=== PATIENT | female | born 1960 | race Caucasian/White ===

== ENCOUNTER 2018-02-15 12:00 | Observation (INO) | payer MEDICARE, OTHER ==
[2018-02-15 12:45] LABS: ADD MAN DIFF? NO
[2018-02-15 12:46] LABS: WHITE BLOOD COUNT 7.4 10^3/ul (4.8-10.8)
[2018-02-15 12:46] LABS: BASOPHIL # 0.1 10^3/ul (0.0-0.1); BASOPHILS % 0.8 % (0.0-2.0); EOSINOPHILS % 0.5 % (0.0-7.0); HEMATOCRIT 40.4 % (37.0-47.0); HEMOGLOBIN 14.2 g/dl (12.0-16.0); LYMPHOCYTES # 1.4 10^3/ul (0.8-2.9); LYMPHOCYTES % 19.4 % (15.0-51.0); MEAN CORPUSCULAR HEMOGLOBIN 31.8 pg (29.0-33.0); MEAN CORPUSCULAR HGB CONC 35.1 g/dl (32.0-37.0); MEAN CORPUSCULAR VOLUME 90.4 fl (82.0-101.0); MEAN PLATELET VOLUME 9.3 fl (7.4-10.4); MONOCYTE # 0.7 10^3/ul (0.3-0.9); MONOCYTES % 8.7 % (0.0-11.0); NEUTROPHIL # 5.2 10^3/ul (1.6-7.5); NEUTROPHILS % 70.3 % (39.0-77.0); PLATELET COUNT 468 10^3/UL (140-415); RED BLOOD COUNT 4.47 10^6/ul (4.20-5.40)
[2018-02-15] MEDS: SOD CHLORIDE 0.9% 1,000 ML IV (12:54)
[2018-02-15] MEDS: LORAZEPAM 2 MG INJ IV (12:54)
[2018-02-15 13:06] LABS: ALANINE AMINOTRANSFERASE 22 IU/L (13-69); ALBUMIN 4.3 g/dl (3.3-4.9); ALBUMIN/GLOBULIN RATIO 1.48; ALKALINE PHOSPHATASE 81 IU/L (42-121); ANION GAP 13 (8-16); ASPARTATE AMINO TRANSFERASE 26 IU/L (15-46); BILIRUBIN,INDIRECT 0.5 mg/dl (0-1.1); BILIRUBIN,TOTAL 0.5 mg/dl (0.2-1.3); BLOOD UREA NITROGEN 9 mg/dl (7-20); CALCIUM 9.8 mg/dl (8.4-10.2); CARBON DIOXIDE 28 mmol/L (21-31); CHLORIDE 97 mmol/L (97-110); CREATININE 0.49 mg/dl (0.44-1.00); GLUCOSE 100 mg/dl (70-220); LIPASE 46 U/L (23-300); POTASSIUM 3.4 mmol/L (3.5-5.1); SODIUM 135 mmol/L (135-144); TOTAL PROTEIN 7.2 g/dl (6.1-8.1)
[2018-02-15 13:19] LABS: TROPONIN-I < 0.010 ng/ml (0.000-0.120)
[2018-02-15 15:50] LABS: ADD UMIC YES; UR ASCORBIC ACID NEGATIVE (NEGATIVE); UR BACTERIA FEW /HPF (NONE SEEN); UR BILIRUBIN (Dip) NEGATIVE (NEGATIVE); UR BLOOD (Dip) 1+ mg/dL (NEGATIVE); UR CLARITY SLIGHTLY CLOUDY (CLEAR); UR COLOR YELLOW (YELLOW); UR GLUCOSE (Dip) NEGATIVE (NEGATIVE); UR KETONES (Dip) TRACE mg/dL (NEGATIVE); UR LEUKOCYTE ESTERASE (Dip) NEGATIVE Leu/ul (NEGATIVE); UR MUCUS FEW /HPF (NONE SEEN); UR NITRITE (Dip) POSITIVE (NEGATIVE); UR RBC 1 /HPF (0-5); UR SPECIFIC GRAVITY (Dip) 1.008 (1.003-1.030); UR TOTAL PROTEIN (Dip) NEGATIVE (NEGATIVE); UR UROBILINOGEN (Dip) NEGATIVE (NEGATIVE); UR WBC 3 /HPF (0-5)
[2018-02-15] MEDS: CEFTRIAXONE 1 GM/50 ML (PMX) 50 ML IVPB (16:44)
[2018-02-15] MEDS ORDERED: DIPHENHYDRAMINE 50 MG CAP PO (17:00)
[2018-02-15] MEDS ORDERED: NACL 0.9% 3 ML SYG IV (17:00)
[2018-02-15] MEDS ORDERED: ZOLPIDEM 5 MG TAB PO (17:00)
[2018-02-15] MEDS ORDERED: ACETAMINOPHEN 325 MG TAB PO (17:00)
[2018-02-15] MEDS ORDERED: ONDANSETRON 4 MG INJ IV (17:00)
[2018-02-15 17:02] LABS: HEMOGLOBIN A1C 5.6 % (0-5.9)
[2018-02-15] MEDS ORDERED: GLUCAGON 1 MG INJ IM (18:00)
[2018-02-15] MEDS ORDERED: DEXTROSE 50% 50 ML SYRINGE IV ×2 (18:00)
[2018-02-15] MEDS ORDERED: GLUCOSE GEL 15 GRAM TUBE PO ×2 (18:00)
[2018-02-15] MEDS ORDERED: GLUCOSE GEL 15 GRAM TUBE BUCCAL (18:00)
[2018-02-15] MEDS: INSULIN ASPART [NOVOLOG] 3 ML PEN SC ×2 (18:05→20:53)
[2018-02-15] MEDS: ZIPRASIDONE 20 MG CAP PO ×2 (20:54→21:00)
[2018-02-15] MEDS: ATENOLOL 50 MG TAB PO ×2 (20:54→21:00)
[2018-02-15] MEDS: SENNA TAB PO ×2 (20:54→21:00)
[2018-02-15] MEDS: BENZTROPINE 1 MG TAB PO ×2 (20:55→21:00)
[2018-02-15] MEDS: GABAPENTIN 300 MG CAP PO ×2 (20:56→21:00)
[2018-02-15] MEDS: ATORVASTATIN 10 MG TAB PO ×2 (20:56→21:00)
[2018-02-15] MEDS: OXCARBAZEPINE 150 MG TAB PO ×2 (20:56→21:00)
[2018-02-15] MEDS ORDERED: BENZTROPINE 1 MG TAB PO (21:00)
[2018-02-15] MEDS ORDERED: NON-FORMULARY/PATIENT OWN MED (Simvastatin 20 MG) PO (21:00)
[2018-02-15] MEDS ORDERED: QUETIAPINE 100 MG TAB PO (21:00)
[2018-02-16] MEDS: PANTOPRAZOLE (EC) 40 MG TAB PO (05:42)
[2018-02-16 05:53] LABS: ADD MAN DIFF? NO
[2018-02-16 05:57] LABS: WHITE BLOOD COUNT 4.7 10^3/ul (4.8-10.8)
[2018-02-16 05:57] LABS: BASOPHIL # 0.1 10^3/ul (0.0-0.1); BASOPHILS % 1.1 % (0.0-2.0); EOSINOPHILS # 0.1 10^3/ul (0.0-0.5); EOSINOPHILS % 2.1 % (0.0-7.0); HEMATOCRIT 39.3 % (37.0-47.0); HEMOGLOBIN 13.7 g/dl (12.0-16.0); LYMPHOCYTES # 1.2 10^3/ul (0.8-2.9); LYMPHOCYTES % 26.3 % (15.0-51.0); MEAN CORPUSCULAR HEMOGLOBIN 31.6 pg (29.0-33.0); MEAN CORPUSCULAR HGB CONC 34.9 g/dl (32.0-37.0); MEAN CORPUSCULAR VOLUME 90.6 fl (82.0-101.0); MEAN PLATELET VOLUME 9.2 fl (7.4-10.4); MONOCYTE # 0.5 10^3/ul (0.3-0.9); NEUTROPHIL # 2.8 10^3/ul (1.6-7.5); NEUTROPHILS % 60.1 % (39.0-77.0); PLATELET COUNT 397 10^3/UL (140-415); RED BLOOD COUNT 4.34 10^6/ul (4.20-5.40)
[2018-02-16 06:38] LABS: ANION GAP 12 (8-16); BLOOD UREA NITROGEN 5 mg/dl (7-20); CARBON DIOXIDE 26 mmol/L (21-31); CHLORIDE 101 mmol/L (97-110); CREATININE 0.44 mg/dl (0.44-1.00); GLUCOSE 104 mg/dl (70-220); MAGNESIUM 1.4 mg/dl (1.7-2.5); PHOSPHORUS 3.5 mg/dl (2.5-4.9); POTASSIUM 3.2 mmol/L (3.5-5.1); SODIUM 136 mmol/L (135-144)
[2018-02-16] MEDS: INSULIN ASPART [NOVOLOG] 3 ML PEN SC ×4 (08:00→20:36)
[2018-02-16] MEDS: HYDROCODONE/APAP (5/325) TAB PO (08:09)
[2018-02-16] MEDS: LAMOTRIGINE 100 MG TAB PO (08:10)
[2018-02-16] MEDS: GABAPENTIN 300 MG CAP PO ×2 (08:10→20:27)
[2018-02-16] MEDS: OXCARBAZEPINE 150 MG TAB PO ×2 (08:10→20:27)
[2018-02-16] MEDS: ZIPRASIDONE 20 MG CAP PO ×2 (08:10→20:28)
[2018-02-16] MEDS: BUPROPION (XL) 150 MG TAB PO (08:10)
[2018-02-16] MEDS: ATENOLOL 50 MG TAB PO ×2 (08:11→20:28)
[2018-02-16] MEDS: BENZTROPINE 1 MG TAB PO ×2 (08:11→20:27)
[2018-02-16] MEDS ORDERED: DIVALPROEX (EC) 250 MG TAB PO (09:00)
[2018-02-16] MEDS ORDERED: ATENOLOL 25 MG TAB PO (09:00)
[2018-02-16] MEDS: MAGNESIUM OXIDE 400 MG TAB PO (10:17)
[2018-02-16] MEDS: POTASSIUM CHLORIDE 20 MEQ POWDER FOR ORAL SOLN PO ×2 (10:18→13:21)
[2018-02-16] MEDS: CEFTRIAXONE 1 GM/50 ML (PMX) 50 ML IVPB (16:48)
[2018-02-16] MEDS: oxyCODONE 5 MG TAB PO (18:15)
[2018-02-16] MEDS: SENNA TAB PO (20:27)
[2018-02-16] MEDS: ATORVASTATIN 10 MG TAB PO (20:28)
[2018-02-16] MEDS: LORAZEPAM 1 MG TAB PO (22:53)
[2018-02-17] MEDS: PANTOPRAZOLE (EC) 40 MG TAB PO (06:02)
[2018-02-17] MEDS: INSULIN ASPART [NOVOLOG] 3 ML PEN SC ×2 (07:57→11:50)
[2018-02-17] MEDS: ZIPRASIDONE 20 MG CAP PO (08:46)
[2018-02-17] MEDS: BUPROPION (XL) 150 MG TAB PO (08:46)
[2018-02-17] MEDS: OXCARBAZEPINE 150 MG TAB PO (08:46)
[2018-02-17] MEDS: GABAPENTIN 300 MG CAP PO ×2 (08:47→13:19)
[2018-02-17] MEDS: ATENOLOL 50 MG TAB PO (08:47)
[2018-02-17] MEDS: LAMOTRIGINE 100 MG TAB PO (08:47)
[2018-02-17] MEDS: BENZTROPINE 1 MG TAB PO (08:47)
[2018-02-17] MEDS: CEPHALEXIN 500 MG CAP PO (09:44)
== END 2018-02-17 14:59 | disposition home or self-care (01) ==
LOC: E/R 12:00 → PP2 16:27
DX: N39.0 Urinary tract infection, site not specified (principal); E11.9 Type 2 diabetes mellitus without complications; F25.9 Schizoaffective disorder, unspecified; I10 Essential (primary) hypertension; Z79.84 Long term (current) use of oral hypoglycemic drugs
CPT/HCPCS: 36415; 71045; 80048; 80053; 81001; 82962; 83036; 83690; 83735; 84100; 84484; 85025; 87086; 93005; 96365; 96375; 97161; 99285-25; G0378

== ENCOUNTER 2018-03-09 18:04 | Emergency (ER) | payer MEDICARE, OTHER ==
[2018-03-09] MEDS: ONDANSETRON (ODT) 4 MG TAB ODT (19:08)
[2018-03-09] MEDS: METHYLPREDNISOLONE 125 MG INJ IM (19:08)
[2018-03-09] MEDS: DIAZEPAM 5 MG TAB PO (19:08)
[2018-03-09] MEDS: HYDROmorphONE 2 MG/ML SYG IM (19:09)
[2018-03-09 19:39] LABS: ADD MAN DIFF? NO
[2018-03-09 19:53] LABS: WHITE BLOOD COUNT 7.7 10^3/ul (4.8-10.8)
[2018-03-09 19:53] LABS: BASOPHIL # 0.1 10^3/ul (0.0-0.1); BASOPHILS % 0.6 % (0.0-2.0); EOSINOPHILS % 0.4 % (0.0-7.0); HEMATOCRIT 38.5 % (37.0-47.0); HEMOGLOBIN 13.2 g/dl (12.0-16.0); LYMPHOCYTES # 1.8 10^3/ul (0.8-2.9); LYMPHOCYTES % 22.7 % (15.0-51.0); MEAN CORPUSCULAR HEMOGLOBIN 31.5 pg (29.0-33.0); MEAN CORPUSCULAR HGB CONC 34.3 g/dl (32.0-37.0); MEAN CORPUSCULAR VOLUME 91.9 fl (82.0-101.0); MONOCYTE # 0.7 10^3/ul (0.3-0.9); MONOCYTES % 9.6 % (0.0-11.0); NEUTROPHIL # 5.1 10^3/ul (1.6-7.5); NEUTROPHILS % 66.3 % (39.0-77.0); PLATELET COUNT 466 10^3/UL (140-415); RED BLOOD COUNT 4.19 10^6/ul (4.20-5.40); RED CELL DISTRIBUTION WIDTH 12.9 % (11.5-14.5)
[2018-03-09] MEDS: SOD CHLORIDE 0.9% 1,000 ML IV (20:00)
[2018-03-09 20:29] LABS: ALANINE AMINOTRANSFERASE 31 IU/L (13-69); ALBUMIN 3.8 g/dl (3.3-4.9); ALBUMIN/GLOBULIN RATIO 1.35; ALKALINE PHOSPHATASE 100 IU/L (42-121); ANION GAP 13 (8-16); ASPARTATE AMINO TRANSFERASE 23 IU/L (15-46); BILIRUBIN,INDIRECT 0.3 mg/dl (0-1.1); BILIRUBIN,TOTAL 0.3 mg/dl (0.2-1.3); BLOOD UREA NITROGEN 4 mg/dl (7-20); CALCIUM 9.2 mg/dl (8.4-10.2); CARBON DIOXIDE 27 mmol/L (21-31); CHLORIDE 102 mmol/L (97-110); CREATINE KINASE 53 IU/L (23-200); CREATININE 0.52 mg/dl (0.44-1.00); GLUCOSE 70 mg/dl (70-220); POTASSIUM 3.4 mmol/L (3.5-5.1); SODIUM 139 mmol/L (135-144); TOTAL PROTEIN 6.6 g/dl (6.1-8.1)
[2018-03-09 20:41] LABS: CK INDEX 1.8; CK-MB 0.98 ng/ml (0.0-2.4); TROPONIN-I 0.011 ng/ml (0.000-0.120)
[2018-03-09 21:18] LABS: URINE BLOOD (Dip) POC Negative (NEGATIVE); URINE GLUCOSE (Dip) POC Negative (NEGATIVE); URINE KETONES (Dip) POC Negative (NEGATIVE); URINE LEUKOCYTE EST (Dip) POC Negative (NEGATIVE); URINE NITRITE (Dip) POC Negative (NEGATIVE); URINE TOTAL PROTEIN POC Negative (NEGATIVE)
[2018-03-09 21:18] LABS: URINE PH (Dip) POC 7.5 (5.0-8.5)
[2018-03-09] MEDS: DIPHENHYDRAMINE 50 MG INJ IV (23:04)
[2018-03-09] MEDS: HYDROmorphONE 1 MG/ML SYG IV (23:05)
[2018-03-09] MEDS: HYDROmorphONE 2 MG/ML SYG IV (23:06)
[2018-03-09] MEDS: ONDANSETRON 4 MG INJ IV (23:09)
== END 2018-03-10 00:58 | disposition home or self-care (01) ==
LOC: E/R 03-10 00:58
DX: M54.32 Sciatica, left side (principal); I10 Essential (primary) hypertension; Z87.891 Personal history of nicotine dependence; Z79.84 Long term (current) use of oral hypoglycemic drugs
CPT/HCPCS: 80053; 81003; 82550; 82553; 84484; 85025; 93005; 96372; 96374; 96375; 99284-25